=== PATIENT | male | born 1955 | race Caucasian/White ===

== ENCOUNTER 2018-10-05 20:36 | Emergency (ER) | payer SELFPAY ==
--- NOTE | 2018-10-05 20:59 | EDM.PDOC ---
ED HPI GENERAL MEDICAL PROBLEM - General Chief Complaint: Genitourinary Problem Stated Complaint: n Time Seen by Provider: 10/05/18 20:46 Source of Information: Reports: Patient History Limitations: Reports: No Limitations - History of Present Illness INITIAL COMMENTS - FREE TEXT/NARRATIVE: HISTORY AND PHYSICAL: History of present illness: Patient is a 63-year-old male who presents to the emergency room with complaints of a "pimple" to the top of his penis shaft. He states he noticed a small area of irritation a few weeks ago and is progressively gotten larger and more painful to touch. He states that he feels like he could put a pin in it and he would be able to drain pus from the site. He denies any testicular pain, swelling or erythema. Denies any penile drainage, dysuria or difficulty starting his stream. Patient states he does routinely shave but does not recall knicking his skin. Denies any traumatic intercourse or penile injury. Patient denies any fever, chills, headache, change in vision, syncope or near syncope. Denies any chest pain, back pain, shortness of breath or cough. Denies any abdominal pain, nausea, vomiting, diarrhea, constipation or dysuria. Has not noted any blood in urine or stool. Patient has been eating and drinking appropriately. Review of systems: As per history of present illness and below otherwise all systems reviewed and negative. Past medical history: As per history of present illness and as reviewed below otherwise noncontributory. Surgical history: As per history of present illness and as reviewed below otherwise noncontributory. Social history: See social history for further information Family history: As per history of present illness and as reviewed below otherwise noncontributory. Physical exam: General: Well-developed and well-nourished 63-year-old male. Alert and oriented. Nontoxic appearing and in no acute distress. HEENT: Atraumatic, normocephalic, pupils equal and reactive bilaterally, negative for conjunctival pallor or scleral icterus, mucous membranes moist, TMs normal bilaterally, throat clear, neck supple, nontender, trachea midline. No drooling or trismus noted. No meningeal signs. No hot potato voice noted. Lungs: Clear to auscultation, breath sounds equal bilaterally, chest nontender. Heart: S1S2, regular rate and rhythm without overt murmur Abdomen: Soft, nondistended, nontender. Genital: Patient has a miguelito-sized circular eyes area to the anterior aspect of the proximal shaft of his penis. It is fluctuant and erythematous. There is a centralized head in the center of this abscess. The remainder of the external genitalia including scrotum assessment is within normal limits. Extremities: Atraumatic, moves all extremities per self without difficulty or deficits, negative for cords or calf pain. Neurovascular unremarkable. Neuro: Awake, alert, oriented. Cranial nerves II through XII unremarkable. Cerebellum unremarkable. Motor and sensory unremarkable throughout. Exam nonfocal. Notes: Consent and a airdox fitter at bedside with my genitalia exam. Patient is requesting that the area be drained while here in the emergency room. Betadine and sterile technique were used to I&D the site with an 11 blade scalpel. Moderate amount of purulent drainage was expressed from the area. Wound culture was obtained and sent to lab. 1/4 inch iodoform packing was placed in the I&D site. Patient tolerated fair. We'll place him on antibiotics and provide him medication for pain management. We discussed the need for follow-up with urology. Our local urologist is unavailable this evening but does return to practice tomorrow. Encouraged him to call tomorrow morning to set up an appointment. If he is unable to get an expedited/timely appointment I requested he called back to the emergency room and I will talk to Dr. Bishop to see if we get him set up with in a timely manner. Medications and supportive care measures were reviewed and discussed. Voices understanding and is agreeable to plan of care. Denies any further questions or concerns at this time. Diagnostics: Wound culture Therapeutics: I&D, Iodoform packing Prescription: Keflex Surprise Impression: Abscess, penile Plan: 1. Keep the area clean and dry. Do not pull the wick out if you are able to avoid it. 2. Take the antibiotic as prescribed. Surprise as needed for moderate to severe pain. This medication may cause drowsiness so do not take while driving or needing to be functioning outside of the house. 3. Please call Dr Mohr to schedule a follow up appointment; [phone] 4. Return to the ED as needed as discussed. Definitive disposition and diagnosis as appropriate pending reevaluation and review of above. Location: Reports: Pelvis - Related Data Allergies Allergy/AdvReac Type Severity Reaction Status Date / Time No Known Allergies Allergy Verified 10/05/18 20:50 Home Meds: Home Meds . [No Known Home Meds] 10/05/18 [History] Past Medical History - Past Health History Medical/Surgical History: Denies Medical/Surgical History Social & Family History - Family History Family Medical History: Noncontributory - Tobacco Use Smoking Status *Q: Never Smoker - Recreational Drug Use Recreational Drug Use: No ED ROS GENERAL - Review of Systems Review Of Systems: ROS reveals no pertinent complaints other than HPI. ED EXAM, GI/ABD - Physical Exam Exam: See Below (See dictation) Course - Vital Signs Last Recorded V/S: Last Vital Signs Temp 96.6 F 10/05/18 20:48 Pulse 84 10/05/18 21:33 Resp 18 10/05/18 21:33 BP 112/67 10/05/18 21:33 Pulse Ox 95 10/05/18 21:33 - Orders/Labs/Meds Orders: Active Orders 24 hr Category Date Time Status CULTURE WOUND [RM] Stat Lab 10/05/18 21:16 Ordered Meds: Medications Discontinued Medications Generic Name Dose Route Start Last Admin Trade Name Nat PRN Reason Stop Dose Admin Lidocaine HCl Confirm 10/05/18 21:24 10/05/18 21:31 Xylocaine-Mpf 1% Administered 10/05/18 21:25 Not Given Dose 5 mls @ as directed .ROUTE .STK-MED ONE Lidocaine HCl 5 ml 10/05/18 21:30 10/05/18 21:31 Xylocaine-Mpf 1% INJECT 10/05/18 21:31 5 ml ONETIME ONE Administration Departure - Departure Time of Disposition: 21:36 Disposition: Home, Self-Care 01 Clinical Impression: Abscess - Discharge Information Instructions: Skin Abscess, [id number] Referrals: PCP,None [Primary Care Provider] - Forms: ED Department Discharge Additional Instructions: The following information is given to patients seen in the emergency department who are being discharged to home. This information is to outline your options for follow-up care. We provide all patients seen in our emergency department with a follow-up referral. The need for follow-up, as well as the timing and circumstances, are variable depending upon the specifics of your emergency department visit. If you don't have a primary care physician on staff, we will provide you with a referral. We always advise you to contact your personal physician following an emergency department visit to inform them of the circumstance of the visit and for follow-up with them and/or the need for any referrals to a consulting specialist. The emergency department will also refer you to a specialist when appropriate. This referral assures that you have the opportunity for follow-up care with a specialist. All of these measure are taken in an effort to provide you with optimal care, which includes your follow-up. Under all circumstances we always encourage you to contact your private physician who remains a resource for coordinating your care. When calling for follow-up care, please make the office aware that this follow-up is from your recent emergency room visit. If for any reason you are refused follow-up, please contact the [facility] Emergency Department at and asked to speak to the emergency department charge nurse. [facility] Primary Care [address] [place] [id number] [facility] Specialty Care - Urology [address] [place] [id number] 1. Keep the area clean and dry. Do not pull the wick out if you are able to avoid it. 2. Take the antibiotic as prescribed. Surprise as needed for moderate to severe pain. This medication may cause drowsiness so do not take while driving or needing to be functioning outside of the house. 3. Please call Dr Mohr (urology) to schedule a follow up appointment; 4. Return to the ED as needed as discussed. - My Orders Last 24 Hours: My Active Orders 10/05/18 21:16 CULTURE WOUND [RM] Stat - Assessment/Plan Last 24 Hours: My Active Orders 10/05/18 21:16 CULTURE WOUND [RM] Stat
== END 2018-10-05 22:20 | disposition home or self-care (01) ==
LOC: MW.ED 20:36
DX: N48.21 Abscess of corpus cavernosum and penis (principal)
CPT/HCPCS: 10060; 87070; 87077; 87186; 99283; J2001

== ENCOUNTER 2018-10-07 12:41 | Emergency (ER) | payer SELFPAY ==
--- NOTE | 2018-10-07 12:47 | EDM.PDOC ---
ED HPI GENERAL MEDICAL PROBLEM - General Time Seen by Provider: 10/07/18 12:46 Source of Information: Reports: Patient History Limitations: Reports: No Limitations - History of Present Illness INITIAL COMMENTS - FREE TEXT/NARRATIVE: HISTORY AND PHYSICAL: History of present illness: Patient is a 63-year-old male who presents to the emergency room today for wound reassessment. Patient was seen on 10/05/18 for an I&D of an abscess to the proximal portion of the anterior shaft of his penis. Iodoform packing was placed in the I&D incision site. He was placed on Keflex and encouraged to follow-up with urology. He reports that he is not able to get into urology until next week and would like the packing removed today. He states that the packing has been irritating and he still plans on following up with urology. Patient denies any fever, chills, headache, change in vision, syncope or near syncope. Denies any chest pain, back pain, shortness of breath or cough. Denies any abdominal pain, nausea, vomiting, diarrhea, constipation or dysuria. No testicular pain, swelling or erythema. Has not noted any blood in urine or stool. Patient has been eating and drinking appropriately. Review of systems: As per history of present illness and below otherwise all systems reviewed and negative. Past medical history: As per history of present illness and as reviewed below otherwise noncontributory. Surgical history: As per history of present illness and as reviewed below otherwise noncontributory. Social history: See social history for further information Family history: As per history of present illness and as reviewed below otherwise noncontributory. Physical exam: General: Well-developed and well-nourished 63-year-old male. Alert and oriented. Nontoxic appearing and in no acute distress. HEENT: Atraumatic, normocephalic, pupils equal and reactive bilaterally, negative for conjunctival pallor or scleral icterus, mucous membranes moist, trachea midline. No drooling or trismus noted. No meningeal signs. No hot potato voice noted. Lungs: Clear to auscultation, breath sounds equal bilaterally. Heart: S1S2, regular rate and rhythm without overt murmur Abdomen: Soft, nondistended, nontender. Negative for masses. Negative for costovertebral tenderness. Pelvis: Stable nontender. Genitourinary: I&D site to the anterior proximal aspect of the shaft of his penis no surrounding erythema. The packing was removed without difficulty Extremities: Atraumatic, moves all extremities per self without difficulty or deficits. Neurovascular unremarkable. Neuro: Awake, alert, oriented. Cranial nerves II through XII unremarkable. Cerebellum unremarkable. Motor and sensory unremarkable throughout. Exam nonfocal. Notes: I&D site to the anterior proximal aspect of the shaft of his penis no surrounding erythema. The packing was removed without difficulty. He refuses any repacking of the site as he states it is too uncomfortable. Encouraged him to finish his antibiotics and follow-up with urology. Supportive care measures were reviewed and discussed. Voices understanding and is agreeable to plan of care. Denies any further questions or concerns at this time. Diagnostics: None Therapeutics: None Prescription: None Impression: Encounter for wound recheck Plan: 1. Wash the area gently with soap and water at least twice daily. Otherwise keep the skin clean and dry. 2. Continue taking her antibiotic as prescribed. Tylenol and/or ibuprofen as needed for pain management. 3. Follow-up with urology as we discussed. Return to the ED as needed and as discussed. Definitive disposition and diagnosis as appropriate pending reevaluation and review of above. - Related Data Allergies Allergy/AdvReac Type Severity Reaction Status Date / Time No Known Allergies Allergy Verified 10/07/18 12:55 Home Meds: Home Meds . [No Known Home Meds] 10/05/18 [History] Past Medical History - Past Health History Medical/Surgical History: Denies Medical/Surgical History Social & Family History - Family History Family Medical History: Noncontributory ED ROS GENERAL - Review of Systems Review Of Systems: ROS reveals no pertinent complaints other than HPI. ED EXAM, SKIN/RASH Exam: See Below (see dictation) Course - Vital Signs Last Recorded V/S: Last Vital Signs Temp 98.5 F 10/07/18 12:52 Pulse 85 10/07/18 12:52 Resp 18 10/07/18 12:52 BP 144/90 H 10/07/18 12:52 Pulse Ox 95 10/07/18 12:52 Departure - Departure Time of Disposition: 13:15 Disposition: Home, Self-Care 01 Clinical Impression: Encounter for wound re-check - Discharge Information Instructions: Wound Care, Adult Referrals: PCP,Unknown [Primary Care Provider] - Forms: ED Department Discharge Additional Instructions: The following information is given to patients seen in the emergency department who are being discharged to home. This information is to outline your options for follow-up care. We provide all patients seen in our emergency department with a follow-up referral. The need for follow-up, as well as the timing and circumstances, are variable depending upon the specifics of your emergency department visit. If you don't have a primary care physician on staff, we will provide you with a referral. We always advise you to contact your personal physician following an emergency department visit to inform them of the circumstance of the visit and for follow-up with them and/or the need for any referrals to a consulting specialist. The emergency department will also refer you to a specialist when appropriate. This referral assures that you have the opportunity for follow-up care with a specialist. All of these measure are taken in an effort to provide you with optimal care, which includes your follow-up. Under all circumstances we always encourage you to contact your private physician who remains a resource for coordinating your care. When calling for follow-up care, please make the office aware that this follow-up is from your recent emergency room visit. If for any reason you are refused follow-up, please contact the [facility] Emergency Department at and asked to speak to the emergency department charge nurse. [facility] Primary Care [address] [place], [place] [id number] [place] [id number] 1. Wash the area gently with soap and water at least twice daily. Otherwise keep the skin clean and dry. 2. Continue taking her antibiotic as prescribed. Tylenol and/or ibuprofen as needed for pain management. 3. Follow-up with urology as we discussed. Return to the ED as needed and as discussed.
== END 2018-10-07 13:30 | disposition home or self-care (01) ==
LOC: MW.ED 12:41
DX: Z48.817 Encounter for surgical aftercare following surgery on the skin and subcutaneous tissue (principal)
CPT/HCPCS: 99282